=== PATIENT | female | born 1975 | race African-American/Black ===

== ENCOUNTER 2020-05-05 08:00 | Day surgery (SDC) | payer OTHER ==
[~2020-05-05 08:00] MED LIST: Lactated Ringers 1,000 ML IV SCH; Sodium Chloride 0.9% 10 ML SDV IV PRN; Sodium Chloride 0.9% 10 ML Syringe FLUSH PRN; Sodium Chloride 0.9% 2.5 ML Syringe FLUSH PRN
--- NOTE | 2020-05-05 08:46 | PCM.PREANE ---
Preanesthetic Assessment - Anesthesia/Transfusion/Family Hx Anesthesia History: Prior Anesthesia Without Reaction Family History of Anesthesia Reaction: No Transfusion History: No Prior Transfusion(s) Intubation History: Unknown - Review of Systems General: No Symptoms Pulmonary: No Symptoms Cardiovascular: No Symptoms Gastrointestinal: No Symptoms Neurological: No Symptoms Other: Reports: None - Physical Assessment Vital Signs: Last Vital Signs Temp 36.4 C 05/05/20 08:08 Pulse 81 05/05/20 08:08 Resp 16 05/05/20 08:08 BP 180/92 H 05/05/20 08:08 Pulse Ox 98 05/05/20 08:08 Height: 5 ft 3 in Weight: 73.028 kg ASA Class: 2 Mental Status: Alert & Oriented x3 Airway Class: Mallampati = 1 Dentition: Reports: Normal Dentition Thyro-Mental Finger Breadths: 3 Mouth Opening Finger Breadths: 3 ROM/Head Extension: Full Lungs: Clear to Auscultation, Normal Respiratory Effort Cardiovascular: Regular Rate, Regular Rhythm - Lab Values: Laboratory Last Values Urine HCG, Qual NEGATIVE (NEGATIVE) 05/05/20 08:04 - Allergies Allergies/Adverse Reactions: Allergies Allergy/AdvReac Type Severity Reaction Status Date / Time No Known Allergies Allergy Verified 04/29/20 07:50 - Blood Blood Available: No - Anesthesia Plan Pre-Op Medication Ordered: None - Acknowledgements Anesthesia Type Planned: MAC Pt an Appropriate Candidate for the Planned Anesthesia: Yes Alternatives and Risks of Anesthesia Discussed w Pt/Guardian: Yes Pt/Guardian Understands and Agrees with Anesthesia Plan: Yes PreAnesthesia Questionnaire HEENT History: Reports: None Cardiovascular History: Reports: Hypertension Respiratory History: Reports: Asthma Gastrointestinal History: Reports: Chronic Constipation Genitourinary History: Reports: None Musculoskeletal History: Reports: Back Pain, Chronic Neurological History: Reports: None Psychiatric History: Reports: None Endocrine/Metabolic History: Reports: None Hematologic History: Reports: Anemia Immunologic History: Reports: None Oncologic (Cancer) History: Reports: None Dermatologic History: Reports: None - Past Surgical History Head Surgeries/Procedures: Reports: None HEENT Surgical History: Reports: Oral Surgery Cardiovascular Surgical History: Reports: None Respiratory Surgical History: Reports: None GI Surgical History: Reports: None Female Surgical History: Reports: D&C, Other (See Below) Other Female Surgeries/Procedures: exploratory laparoscopy Endocrine Surgical History: Reports: None Neurological Surgical History: Reports: None Musculoskeletal Surgical History: Reports: None Oncologic Surgical History: Reports: None Dermatological Surgical History: Reports: None - SUBSTANCE USE Tobacco Use Status *Q: Current Every Day Tobacco User (to quit 6 cig./day - uses nicotine gum) Tobacco Use Within Last Twelve Months: Cigarettes - HOME MEDS Home Medications: Home Meds Albuterol Sulfate [Albuterol Sulfate Hfa] 1 - 2 puff INH ASDIRECTED PRN 04/29/20 [History] Nicotine Polacrilex [Nicorette] 1 dose CHEW ASDIRECTED PRN 04/29/20 [History] hydroCHLOROthiazide [Hydrochlorothiazide] 25 mg PO DAILY 04/29/20 [History] - CURRENT (IN HOUSE) MEDS Current Meds: Current Medications Lactated Ringer's (Ringers, Lactated) 1,000 mls @ 125 mls/hr IV ASDIRECTED JACKLYN Last Admin: 05/05/20 08:30 Dose: 125 mls/hr Documented by: Sodium Chloride (Saline Flush) 10 ml FLUSH ASDIRECTED PRN PRN Reason: Keep Vein Open Sodium Chloride (Saline Flush) 2.5 ml FLUSH ASDIRECTED PRN PRN Reason: Keep Vein Open Sodium Chloride (Saline Flush) 10 ml FLUSH ASDIRECTED PRN PRN Reason: Keep Vein Open Sodium Chloride (Saline Flush) 2.5 ml FLUSH ASDIRECTED PRN PRN Reason: Keep Vein Open Sodium Chloride (Normal Saline) 10 ml IV ASDIRECTED PRN PRN Reason: IV Use
[2020-05-05] MEDS ORDERED: fentaNYL 100 MCG/2 ML SDV ONE (09:19)
[2020-05-05] MEDS ORDERED: Lidocaine 2% 5 ML SDV ONE (09:19)
[2020-05-05] MEDS ORDERED: Midazolam 1 MG/ML 2 ML SDV ONE (09:19)
[2020-05-05] MEDS ORDERED: Propofol 200 MG/20 ML SDV ONE (09:19)
[2020-05-05] MEDS ORDERED: Glycopyrrolate 0.2 MG/ML SDV ONE (10:15)
--- NOTE | 2020-05-05 10:51 | PCM.OPNOTE ---
- General Post-Op/Procedure Note Date of Surgery/Procedure: 05/05/20 Operative Procedure(s): Diagnostic colonoscopy Findings: sigmoid colon polyps x 3 Pre Op Diagnosis: Change in bowel habits Post-Op Diagnosis: Sigmoid colon polyps Anesthesia Technique: MAC Primary Surgeon: Charmaine Rai Condition: Good
--- NOTE | 2020-05-05 11:23 | PCM.POSTAN ---
POST ANESTHESIA ASSESSMENT - MENTAL STATUS Mental Status: Alert, Oriented - VITAL SIGNS Vital Signs: Last Vital Signs Temp 36.4 C 05/05/20 11:10 Pulse 81 05/05/20 11:10 Resp 14 05/05/20 11:10 BP 177/95 H 05/05/20 11:10 Pulse Ox 96 05/05/20 11:10 - RESPIRATORY Respiratory Status: Respiratory Rate WNL, Airway Patent, O2 Saturation Stable - CARDIOVASCULAR CV Status: Pulse Rate WNL, Blood Pressure Stable - GASTROINTESTINAL GI Status: No Symptoms - PAIN Pain Score: 0 - POST OP HYDRATION Hydration Status: Adequate & Stable - OBSERVATIONS Free Text/Narrative:: No anesthesia problems
--- NOTE | 2020-05-05 11:27 | PCM48HPAN ---
Post Anesthesia Note - EVALUATION WITHIN 48HRS OF ANESTHETIC Vital Signs in Normal Range: Yes Patient Participated in Evaluation: Yes Respiratory Function Stable: Yes Airway Patent: Yes Cardiovascular Function Stable: Yes Hydration Status Stable: Yes Pain Control Satisfactory: Yes Nausea and Vomiting Control Satisfactory: Yes Mental Status Recovered: Yes Vital Signs: Last Vital Signs Temp 36.4 C 05/05/20 11:10 Pulse 81 05/05/20 11:10 Resp 14 05/05/20 11:10 BP 177/95 H 05/05/20 11:10 Pulse Ox 96 05/05/20 11:10 - COMMENTS/OBSERVATIONS Free Text/Narrative:: No anesthesia problems
--- NOTE | 2020-05-05 12:57 | OR ---
SURGEON: CHARMAINE RAI MD DATE OF PROCEDURE: 05/05/2020 PREOPERATIVE DIAGNOSIS: Change in bowel habits. POSTOPERATIVE DIAGNOSIS: Sigmoid colon polyps x3. PROCEDURE PERFORMED: Diagnostic colonoscopy with polypectomy. PRIMARY SURGEON: Charmaine Rai MD ANESTHESIA: MAC. INSTRUMENT USED: Olympus colonoscope. EXTENT OF EXAM: To the cecum. PREPARATION: Good. LIMITATIONS: None. INDICATIONS FOR EXAMINATION: The patient is a 44-year-old female who presents with changes in her bowel habits. I explained the need for diagnostic colonoscopy. The patient and I discussed the procedure, expected perioperative course, and the risks. The patient verbalized understanding and wishes to proceed. PROCEDURE IN DETAIL: The patient was brought to the endoscopy suite and placed in the left lateral decubitus position. A time-out was completed verifying the patient's name, age, date of , allergies, and procedure to be performed. Monitored anesthesia care was induced and continuous oxygen was provided via nasal cannula throughout the procedure. After adequate sedation was achieved, a digital rectal exam was performed. This exam was within normal limits. A well-lubricated colonoscope was inserted in the rectum and advanced under direct visualization to the level of the cecum. The cecum was identified by both visual and anatomic landmarks. A photograph was taken of the cecal cap as well as with the scope retroflexed within the cecum. The scope was then straightened out and fully withdrawn while examining the color, texture, anatomy, and integrity of the mucosa from the cecum to the anal canal. In the sigmoid colon, the patient was noted to have 3 very small sessile polyps. These were removed in piecemeal fashion using cold biopsy forceps. The scope was then brought into the rectum and retroflexed to allow visualization of the anal canal opening. This appeared normal and a photograph was taken. The scope was then straightened out and fully withdrawn. The cecum to anus time was 12 minutes. The patient tolerated the procedure well and was transferred to the PACU in stable condition. ENDOSCOPIC DIAGNOSIS: Sigmoid colon polyps x3. RECOMMENDATIONS: Follow up in clinic in 2 weeks. JARRELL ORTIZ /[id number]
== END 2020-05-05 11:55 | disposition home or self-care (01) ==
LOC: MW.SDS 08:00
PROVIDERS: ATTEND Surgery
DX: K63.5 Polyp of colon (principal); K59.09 Other constipation; I10 Essential (primary) hypertension; Z79.899 Other long term (current) drug therapy; Z98.890 Other specified postprocedural states
CPT/HCPCS: 45380; 81025; 88305; J2001; J2250; J2704; J3010; J3490; J7120

== ENCOUNTER 2021-01-01 10:05 | Emergency (ER) | payer OTHER ==
--- NOTE | 2021-01-01 10:19 | PCM.EKG ---
#1 Interpretation Time: 10:18 EKG Interpretation Comments: 91, normal sinus rhythm, poor R wave progression
[2021-01-01] MEDS ORDERED: Sodium Chloride 0.9% 10 ML Syringe FLUSH PRN (10:21)
[2021-01-01] MEDS ORDERED: Sodium Chloride 0.9% 2.5 ML Syringe FLUSH PRN (10:21)
[2021-01-01] MEDS ORDERED: Aspirin 81 MG Tab.Chew PO ONE (10:21)
[2021-01-01] MEDS: Nitroglycerin 0.4 MG Tab.SL SL PRN ×3 (10:30→10:44)
--- NOTE | 2021-01-01 11:06 | CR ---
Indication: Shortness of breath Comparison: None available. Technique: Single AP view chest Findings: There is hyperinflation and chronic interstitial change. There is no focal consolidation, effusion, or pneumothorax. The cardiomediastinal silhouette is within normal limits. The bony thorax is grossly intact. Impression: No acute cardiopulmonary abnormality. Dictated by Johnnie Ordaz MD @ 01/01/2021 11:05:[address] Johnnie Ordaz @ Jan 01 2021 11:05AM
[2021-01-01 11:09] LABS: BLOOD UREA NITROGEN,BUN 10 mg/dL (7.0-18.0); CARBON DIOXIDE,CO2 26.1 mmol/L (21.0-32.0); CHLORIDE,CL 102 mmol/L (98-107); GLUCOSE RANDOM 93 mg/dL (74-106); LIPASE 156 U/L (73-393); POTASSIUM,K 4.2 mmol/L (3.5-5.1); SODIUM,NA 136 mmol/L (136-145)
[2021-01-01] MEDS ORDERED: Morphine 4 MG/ML Syringe IVPUSH ONE (11:17)
[2021-01-01] MEDS ORDERED: traMADol 50 MG Tab PO ONE (11:23)
--- NOTE | 2021-01-01 11:28 | EDM.PDOC ---
ED HPI GENERAL MEDICAL PROBLEM - General Chief Complaint: Respiratory Problem Stated Complaint: SHORTNESS OF BREATH AND CHEST PAIN Time Seen by Provider: 01/01/21 10:06 Source of Information: Reports: Patient History Limitations: Reports: No Limitations - History of Present Illness INITIAL COMMENTS - FREE TEXT/NARRATIVE: HISTORY AND PHYSICAL: History of present illness: Patient is a 45-year-old female who presents emergency room today with concern of chest pain, shortness of breath, cough, and generalized body aches starting in the middle of the night. Patient also complains of upper back pain and states that this is worse with lying flat and feels as if she is having a "muscle spasm" which she does feel is contributing to her chest pain and shortness of breath. Patient states that her symptoms first started with generalized body aches and cough and states that she was coughing all night long. Patient states when she woke up this morning, she began having chest pain and short of breath so came to the emergency room for further evaluation. Patient states that she does have a history of high blood pressure and states that it is "always super high "and states that her baseline is greater than two hundred systolic over 100s diastolic. Patient states that she has not taken her blood pressure medication today. Patient denies any other health history. States that she was vaccinated for Covid. Patient denies fever, chills. Denies headache, neck stiff ness, change in vision, syncope, or near syncope. Denies nausea, vomiting, abdominal pain, diarrhea, constipation, or dysuria. Has not noted any blood in urine or stool. Patient has been eating and drinking appropriately. Review of systems: As per history of present illness and below otherwise all systems reviewed and negative. Past medical history: As per history of present illness and as reviewed below otherwise noncontributory. Surgical history: As per history of present illness and as reviewed below otherwise noncontributory. Social history: See social history for further information Family history: As per history of present illness and as reviewed below otherwise noncontributory. Physical exam: General: Patient is alert, oriented, and in no acute distress. Patient sitting comfortably on exam table. Hypertensive 230/115 otherwise vitally stable and reviewed by me, HEENT: Atraumatic, normocephalic, pupils equal and reactive bilaterally, negative for conjunctival pallor or scleral icterus, mucous membranes moist, TMs normal bilaterally, throat clear, neck supple, nontender, trachea midline. No drooling or trismus noted. No meningeal signs. No hot potato voice noted. Lungs: Clear to auscultation, breath sounds equal bilaterally, chest nontender. Heart: S1S2, regular rate and rhythm without overt murmur Abdomen: Soft, nondistended, nontender. Negative for masses or hepatosplenomegaly. Negative for costovertebral tenderness. Pelvis: Stable nontender. Genitourinary: Deferred. Rectal: Deferred. Skin: Intact, warm, dry. No lesions or rashes noted. Extremities: No obvious deformity of the complete spine. No step-offs, crepitus, or point tenderness to palpation of the complete spine. Patient does have recreation of her back pain with palpation of the right sided inferior trapezius muscle with improved discomfort with massage on exam. Otherwise, atraumatic, negative for cords or calf pain. Neurovascular unremarkable. Neuro: Awake, alert, oriented. Cranial nerves II through XII unremarkable. Cerebellum unremarkable. Motor and sensory unremarkable throughout. Exam nonfocal. Notes: Patient is a 45-year-old female, with a history of hypertension (who states her baseline BP is typically >200 systolic/100 diastolic), who presents emergency room today with concern of chest pain (starting at 630am this morning), shortness of breath, cough, and generalized body aches/left upper back pain starting in the middle of the night. Upon arrival to the ED, patient is h ypertensive 230/115, otherwise vitally stable and well-appearing on exam. Patient does have some tenderness to palpation of the right sided trapezius muscle and states that this is the back discomfort that she is having. Will obtain cardiac evaluation, provide ASA/Nitro for CP and reassess patient. See Dr. Oakes's dictation for specific EKG interpretation. However, normal sinus rhythm with a rate of 91 bpm without STEMI. CBC does show a mild leukocytosis of 11.35 which nonspecific. Otherwise CBC is unremarkable. D-dimer is within normal limits. CMP is unremarkable. Initial troponin is negative. hCG is negative. Lipase within normal limits. Urinalysis is clear of infection. COVID-19 is negative. Chest x-ray shows no acute cardiopulmonary process. Upon reevaluation of patient, she does not have improvement of her symptoms with Nitro but does have improvement of BP 170s/100s. I did offer morphine due to ACS protocol, however, patient declines morphine requesting tramadol. Will repeat troponin and continue to reassess patient. Repeat troponin is negative. Upon reevaluation of patient, she remains vitally stable and has improvement of her symptoms with tramadol today the emergency room. Given that patient states that her baseline blood pressure is quite elevated, do not feel that patient's blood pressure today is acute and has likely going on for some time. Patient does not have any evidence of end-stage organ dysfunction and no change in her symptoms today with BP lowering with nitro and although elevated BP today, no suggestion for htn emergency given asy mptomatic htn and no end organ dysfunction. Patient does feel as if her back spasm is likely related to her chest pain and shortness of breath making it feel like she cannot take a deep breath in and has improvement of her back spasm with tramadol today in the emergency room which relieved her CP/SOB. HEART score low risk. Patient does have hydrochlorothiazide 25 mg available to her that she typically takes every day but states that she did not take this morning. Patient was provided a dose of her home medications and has improvement of her blood pressure today in the emergency room. However, patient's blood pressure is still markedly high, will start patient on amlodipine 5 mg daily and give patient enough for 1 week until she is able to see her primary care provider for further blood pressure management. Strict return precautions thoroughly discussed with patient. Discussed importance for close follow-up with her primary care provider and the need for further blood pressure management. Voices understanding and is agreeable to plan of care. Denies any further questions or concerns at this time. Diagnostics: EKG, CBC, CMP, UA, serum hcg, Lipase, Trop, Ddimer, COVID Therapeutics: ASA, Nitro, Tramadol (Patient declines morphine requesting tramadol), HCTZ Prescription: Amlodipine Impression: Atypical chest pain, improved Back spasm, improved Hypertension, uncontrolled Plan: 1. You can alternate ibuprofen and Tylenol as directed for pain and discomfort. Take medication as prescribed. 2. Follow-up with your primary care provider closely and for further blood pressure monitoring as discussed. Continue to monitor your blood pressure at home twice daily, once in the morning, and once in the evening and make a journal of this to bring to your primary care provider. 3. Return to the emergency room as needed and as discussed. Definitive disposition and diagnosis as appropriate pending reevaluation and review of above. back/head Pain Score (Numeric/FACES): 8 - Related Data Allergies Allergy/AdvReac Type Severity Reaction Status Date / Time No Known Allergies Allergy Verified 01/01/21 10:20 Home Meds: Home Meds Albuterol Sulfate [Albuterol Sulfate Hfa] 1 - 2 puff INH ASDIRECTED PRN 04/29/20 [History] hydroCHLOROthiazide [Hydrochlorothiazide] 25 mg PO DAILY 04/29/20 [History] amLODIPine [Norvasc] 5 mg PO DAILY 7 Days #7 tab 01/01/21 [Rx] Past Medical History HEENT History: Reports: None Cardiovascular History: Reports: Hypertension Respiratory History: Reports: Asthma, Bronchitis, Recurrent Gastrointestinal History: Reports: Chronic Constipation Genitourinary History: Reports: None [employer] History: Reports: Musculoskeletal History: Reports: Back Pain, Chronic Neurological History: Reports: None Psychiatric History: Reports: None Endocrine/Metabolic History: Reports: None Hematologic History: Reports: Anemia Immunologic History: Reports: None Oncologic (Cancer) History: Reports: None Dermatologic History: Reports: None - Infectious Disease History Infectious Disease History: Reports: Chicken Pox - Past Surgical History Head Surgeries/Procedures: Reports: None HEENT Surgical History: Reports: Oral Surgery Cardiovascular Surgical History: Reports: None Respiratory Surgical History: Reports: None GI Surgical History: Reports: None Female Surgical History: Reports: D&C, Other (See Below) Other Female Surgeries/Procedures: exploratory laparoscopy Endocrine Surgical History: Reports: None Neurological Surgical History: Reports: None Musculoskeletal Surgical History: Reports: None Oncologic Surgical History: Reports: None Dermatological Surgical History: Reports: None Social & Family History - Family History Family Medical History: No Pertinent Family History - Tobacco Use Tobacco Use Status *Q: Current Every Day Tobacco User Years of Tobacco use: 21 Packs/Tins Daily: 0.5 - Caffeine Use Caffeine Use: Reports: Coffee, Tea - Recreational Drug Use Recreational Drug Use: No ED ROS GENERAL - Review of Systems Review Of Systems: Comprehensive ROS is negative, except as noted in HPI. ED EXAM, GENERAL - Physical Exam Exam: See Below (see dictation) Course - Vital Signs Last Recorded V/S: Last Vital Signs Temp 98.6 F 01/01/21 10:40 Pulse 60 01/01/21 14:04 Resp 18 08/20/21 14:04 BP 188/97 H 01/01/21 14:04 Pulse Ox 98 01/01/21 14:04 - Orders/Labs/Meds Orders: Active Orders 24 hr Category Date Time Status Cardiac Monitoring [RC] . DIRECTED Care 01/01/21 10:21 Active Sodium Chloride 0.9% [Saline Flush] Med 01/01/21 10:21 Active 10 ml FLUSH ASDIRECTED PRN Sodium Chloride 0.9% [Saline Flush] Med 01/01/21 10:21 Active 2.5 ml FLUSH ASDIRECTED PRN Saline Lock Insert [OM.PC] Stat Oth 01/01/21 10:21 Ordered Medication Orders Sodium Chloride (Sodium Chloride 0.9% 2.5 Ml Syringe) 2.5 ml FLUSH ASDIRECTED PRN PRN Reason: Keep Vein Open Last Admin: 01/01/21 10:31 Dose: 2.5 ml Documented by: LALI Sodium Chloride (Sodium Chloride 0.9% 10 Ml Syringe) 10 ml FLUSH ASDIRECTED PRN PRN Reason: Keep Vein Open Last Admin: 01/01/21 10:31 Dose: 10 ml Documented by: LALI Labs: Laboratory Tests 01/01/21 01/01/21 01/01/21 Range/Units 10:25 10:25 10:25 WBC 11.35 H (4.0-11.0) K/uL RBC 4.98 (4.30-5.90) M/uL Hgb 15.1 (12.0-16.0) g/dL Hct 43.8 (36.0-46.0) % MCV 88.0 (80.0-98.0) fL MCH 30.3 (27.0-32.0) pg MCHC 34.5 (31.0-37.0) g/dL RDW Std Deviation 46.5 (28.0-62.0) fl RDW Coeff of Kush 15 (11.0-15.0) % Plt Count 272 (150-400) K/uL MPV 12.80 H (7.40-12.00) fL Neut % (Auto) 49.5 (48.0-80.0) % Lymph % (Auto) 40.0 (16.0-40.0) % [place] % (Auto) 9.6 (0.0-15.0) % Eos % (Auto) 0.5 (0.0-7.0) % Baso % (Auto) 0.4 (0.0-1.5) % Neut # (Auto) 5.6 (1.4-5.7) K/uL Lymph # (Auto) 4.5 H (0.6-2.4) K/uL [place] # (Auto) 1.1 H (0.0-0.8) K/uL Eos # (Auto) 0.1 (0.0-0.7) K/uL Baso # (Auto) 0.1 (0.0-0.1) K/uL Nucleated RBC % 0.0 /100WBC Nucleated RBCs # 0 K/uL D-Dimer, Quantitative 0.34 (0.0-0.50) mg/L FEU Sodium 136 (136-145) mmol/L Potassium 4.2 (3.5-5.1) mmol/L Chloride 102 (98-107) mmol/L Carbon Dioxide 26.1 (21.0-32.0) mmol/L BUN 10 (7.0-18.0) mg/dL Creatinine 0.9 (0.6-1.0) mg/dL Est Cr Clr Drug Dosing 64.61 mL/min Estimated GFR (MDRD) > 60.0 ml/min Glucose 93 (74-106) mg/dL Calcium 8.9 (8.5-10.1) mg/dL Total Bilirubin 0.3 (0.2-1.0) mg/dL AST 20 (15-37) IU/L ALT 26 (14-63) IU/L Alkaline Phosphatase 81 (46-116) U/L Troponin I < 0.050 (0.000-0.056) ng/mL Total Protein 7.9 (6.4-8.2) g/dL Albumin 4.0 (3.4-5.0) g/dL Globulin 3.9 (2.6-4.0) g/dL Albumin/Globulin Ratio 1.0 (0.9-1.6) Lipase 156 (73-393) U/L HCG, Qual (NEG) Urine Color Urine Appearance Urine pH (5.0-8.0) Ur Specific Stewart (1.001-1.035) Urine Protein (NEGATIVE) mg/dL Urine Glucose (UA) (NEGATIVE) mg/dL Urine Ketones (NEGATIVE) mg/dL Urine Occult Blood (NEGATIVE) Urine Nitrite (NEGATIVE) Urine Bilirubin (NEGATIVE) Urine Urobilinogen (<2.0) EU/dL Ur Leukocyte Esterase (NEGATIVE) Urine RBC (0-2/HPF) Urine WBC (0-5/HPF) Ur Epithelial Cells (NONE-FEW) Amorphous Sediment (NEGATIVE) Urine Bacteria (NEGATIVE) Urine Mucus (NONE-MOD) SARS-CoV-2 RNA (MARILEE) (NEGATIVE) 01/01/21 01/01/21 01/01/21 Range/Units 10:25 10:42 10:51 WBC (4.0-11.0) K/uL RBC (4.30-5.90) M/uL Hgb (12.0-16.0) g/dL Hct (36.0-46.0) % MCV (80.0-98.0) fL MCH (27.0-32.0) pg MCHC (31.0-37.0) g/dL RDW Std Deviation (28.0-62.0) fl RDW Coeff of Uksh (11.0-15.0) % Plt Count (150-400) K/uL MPV (7.40-12.00) fL Neut % (Auto) (48.0-80.0) % Lymph % (Auto) (16.0-40.0) % [place] % (Auto) (0.0-15.0) % Eos % (Auto) (0.0-7.0) % Baso % (Auto) (0.0-1.5) % Neut # (Auto) (1.4-5.7) K/uL Lymph # (Auto) (0.6-2.4) K/uL [place] # (Auto) (0.0-0.8) K/uL Eos # (Auto) (0.0-0.7) K/uL Baso # (Auto) (0.0-0.1) K/uL Nucleated RBC % /100WBC Nucleated RBCs # K/uL D-Dimer, Quantitative (0.0-0.50) mg/L FEU Sodium (136-145) mmol/L Potassium (3.5-5.1) mmol/L Chloride (98-107) mmol/L Carbon Dioxide (21.0-32.0) mmol/L BUN (7.0-18.0) mg/dL Creatinine (0.6-1.0) mg/dL Est Cr Clr Drug Dosing mL/min Estimated GFR (MDRD) ml/min Glucose (74-106) mg/dL Calcium (8.5-10.1) mg/dL Total Bilirubin (0.2-1.0) mg/dL AST (15-37) IU/L ALT (14-63) IU/L Alkaline Phosphatase (46-116) U/L Troponin I (0.000-0.056) ng/mL Total Protein (6.4-8.2) g/dL Albumin (3.4-5.0) g/dL Globulin (2.6-4.0) g/dL Albumin/Globulin Ratio (0.9-1.6) Lipase (73-393) U/L HCG, Qual NEGATIVE (NEG) Urine Color YELLOW Urine Appearance CLEAR Urine pH 6.0 (5.0-8.0) Ur Specific Stewart 1.015 (1.001-1.035) Urine Protein NEGATIVE (NEGATIVE) mg/dL Urine Glucose (UA) NEGATIVE (NEGATIVE) mg/dL Urine Ketones NEGATIVE (NEGATIVE) mg/dL Urine Occult Blood TRACE-INTACT H (NEGATIVE) Urine Nitrite NEGATIVE (NEGATIVE) Urine Bilirubin NEGATIVE (NEGATIVE) Urine Urobilinogen 0.2 (<2.0) EU/dL Ur Leukocyte Esterase NEGATIVE (NEGATIVE) Urine RBC 0-2 (0-2/HPF) Urine WBC 0-2 (0-5/HPF) Ur Epithelial Cells FEW (NONE-FEW) Amorphous Sediment LIGHT (NEGATIVE) Urine Bacteria FEW (NEGATIVE) Urine Mucus LIGHT (NONE-MOD) SARS-CoV-2 RNA (MARILEE) NEGATIVE (NEGATIVE) 01/01/21 Range/Units 13:44 WBC (4.0-11.0) K/uL RBC (4.30-5.90) M/uL Hgb (12.0-16.0) g/dL Hct (36.0-46.0) % MCV (80.0-98.0) fL MCH (27.0-32.0) pg MCHC (31.0-37.0) g/dL RDW Std Deviation (28.0-62.0) fl RDW Coeff of Kush (11.0-15.0) % Plt Count (150-400) K/uL MPV (7.40-12.00) fL Neut % (Auto) (48.0-80.0) % Lymph % (Auto) (16.0-40.0) % [place] % (Auto) (0.0-15.0) % Eos % (Auto) (0.0-7.0) % Baso % (Auto) (0.0-1.5) % Neut # (Auto) (1.4-5.7) K/uL Lymph # (Auto) (0.6-2.4) K/uL [place] # (Auto) (0.0-0.8) K/uL Eos # (Auto) (0.0-0.7) K/uL Baso # (Auto) (0.0-0.1) K/uL Nucleated RBC % /100WBC Nucleated RBCs # K/uL D-Dimer, Quantitative (0.0-0.50) mg/L FEU Sodium (136-145) mmol/L Potassium (3.5-5.1) mmol/L Chloride (98-107) mmol/L Carbon Dioxide (21.0-32.0) mmol/L BUN (7.0-18.0) mg/dL Creatinine (0.6-1.0) mg/dL Est Cr Clr Drug Dosing mL/min Estimated GFR (MDRD) ml/min Glucose (74-106) mg/dL Calcium (8.5-10.1) mg/dL Total Bilirubin (0.2-1.0) mg/dL AST (15-37) IU/L ALT (14-63) IU/L Alkaline Phosphatase (46-116) U/L Troponin I < 0.050 (0.000-0.056) ng/mL Total Protein (6.4-8.2) g/dL Albumin (3.4-5.0) g/dL Globulin (2.6-4.0) g/dL Albumin/Globulin Ratio (0.9-1.6) Lipase (73-393) U/L HCG, Qual (NEG) Urine Color Urine Appearance Urine pH (5.0-8.0) Ur Specific Stewart (1.001-1.035) Urine Protein (NEGATIVE) mg/dL Urine Glucose (UA) (NEGATIVE) mg/dL Urine Ketones (NEGATIVE) mg/dL Urine Occult Blood (NEGATIVE) Urine Nitrite (NEGATIVE) Urine Bilirubin (NEGATIVE) Urine Urobilinogen (<2.0) EU/dL Ur Leukocyte Esterase (NEGATIVE) Urine RBC (0-2/HPF) Urine WBC (0-5/HPF) Ur Epithelial Cells (NONE-FEW) Amorphous Sediment (NEGATIVE) Urine Bacteria (NEGATIVE) Urine Mucus (NONE-MOD) SARS-CoV-2 RNA (MARILEE) (NEGATIVE) Meds: Medications Generic Name Dose Route Start Last Admin Trade Name Freq PRN Reason Stop Dose Admin Sodium Chloride 2.5 ml 01/01/21 10:21 01/01/21 10:31 Sodium Chloride 0.9% 2.5 Ml Syringe FLUSH 2.5 ml ASDIRECTED PRN Administration Keep Vein Open Sodium Chloride 10 ml 01/01/21 10:21 01/01/21 10:31 Sodium Chloride 0.9% 10 Ml Syringe FLUSH 10 ml ASDIRECTED PRN Administration Keep Vein Open Discontinued Medications Generic Name Dose Route Start Last Admin Trade Name Freq PRN Reason Stop Dose Admin Aspirin 324 mg 01/01/21 10:21 01/01/21 10:29 Aspirin 81 Mg Tab.Chew PO 01/01/21 10:22 324 mg ONETIME ONE Administration Hydrochlorothiazide 25 mg 01/01/21 12:12 01/01/21 12:47 Hydrochlorothiazide 25 Mg Tab PO 01/01/21 12:13 25 mg ONETIME ONE Administration Morphine Sulfate 4 mg 01/01/21 11:17 01/01/21 11:24 Morphine 4 Mg/Ml Syringe IVPUSH 01/01/21 11:18 Not Given ONETIME ONE Nitroglycerin 0.4 mg 01/01/21 10:23 01/01/21 10:44 Nitroglycerin 0.4 Mg Tab.Sl SL 0.4 mg Q5M PRN Administration Chest Pain Tramadol HCl 50 mg 01/01/21 11:23 01/01/21 11:27 Tramadol 50 Mg Tab PO 01/01/21 11:24 50 mg ONETIME ONE Administration Departure - Departure Time of Disposition: 14:42 Disposition: Home, Self-Care 01 Clinical Impression: Atypical chest pain, Uncontrolled hypertension, Back spasm - Discharge Information Prescriptions: amLODIPine [Norvasc] 5 mg PO DAILY 7 Days #7 tab Instructions: How to Take Your Blood Pressure, [id number], Nonspecific Chest Pain, Adult, [id number] Referrals: PCP,None [Primary Care Provider] - Forms: ED Department Discharge Additional Instructions: The following information is given to patients seen in the emergency department who are being discharged to home. This information is to outline your options for follow-up care. We provide all patients seen in our emergency department with a follow-up referral. The need for follow-up, as well as the timing and circumstances, are variable depending upon the specifics of your emergency department visit. If you don't have a primary care physician on staff, we will provide you with a referral. We always advise you to contact your personal physician following an emergency department visit to inform them of the circumstance of the visit and for follow-up with them and/or the need for any referrals to a consulting specialist. The emergency department will also refer you to a specialist when appropriate. This referral assures that you have the opportunity for follow-up care with a specialist. All of these measure are taken in an effort to provide you with optimal care, which includes your follow-up. Under all circumstances we always encourage you to contact your private physician who remains a resource for coordinating your care. When calling for follow-up care, please make the office aware that this follow-up is from your recent emergency room visit. If for any reason you are refused follow-up, please contact the [facility] Emergency Department at and asked to speak to the emergency department charge nurse. [facility] [address] [place] [id number] [address] [address] 1. You can alternate ibuprofen and Tylenol as directed for pain and discomfort. 2. Follow-up with your primary care provider closely and for further blood pressure monitoring as discussed. Continue to monitor your blood pressure at home twice daily, once in the morning, and once in the evening and make a journal of this to bring to your primary care provider. 3. Return to the emergency room as needed and as discussed. Sepsis Event Note (ED) - Evaluation Sepsis Screening Result: No Definite Risk - Focused Exam Vital Signs: Vital Signs Temp Pulse Resp BP BP BP Pulse Ox 01/01/21 14:04 60 18 188/97 H 98 01/01/21 13:17 66 177/89 H 98 01/01/21 12:47 85 18 187/92 H 98 01/01/21 12:23 64 206/94 H 97 01/01/21 11:51 62 18 184/82 H 98 01/01/21 11:15 69 173/89 H 97 01/01/21 10:49 82 18 172/104 H 97 01/01/21 10:44 176/100 H 01/01/21 10:40 98.6 F 83 176/100 H 96 01/01/21 10:37 168/96 H 01/01/21 10:30 238/113 H 01/01/21 10:10 98.6 F 96 20 237/113 H 238/113 H 98 - My Orders Last 24 Hours: My Active Orders 01/01/21 10:21 Cardiac Monitoring [RC] . DIRECTED Sodium Chloride 0.9% [Saline Flush] 10 ml FLUSH ASDIRECTED PRN Sodium Chloride 0.9% [Saline Flush] 2.5 ml FLUSH ASDIRECTED PRN Saline Lock Insert [OM.PC] Stat - Assessment/Plan Last 24 Hours: My Active Orders 01/01/21 10:21 Cardiac Monitoring [RC] . DIRECTED Sodium Chloride 0.9% [Saline Flush] 10 ml FLUSH ASDIRECTED PRN Sodium Chloride 0.9% [Saline Flush] 2.5 ml FLUSH ASDIRECTED PRN Saline Lock Insert [OM.PC] Stat
[2021-01-01] MEDS ORDERED: Hydrochlorothiazide 25 MG Tab PO ONE (12:12)
== END 2021-01-01 15:03 | disposition home or self-care (01) ==
LOC: MW.ED 10:05
DX: R07.89 Other chest pain (principal); I10 Essential (primary) hypertension; M62.830 Muscle spasm of back; J45.909 Unspecified asthma, uncomplicated; D64.9 Anemia, unspecified; Z72.0 Tobacco use; Z79.899 Other long term (current) drug therapy
CPT/HCPCS: 36415; 71045; 80053; 81001; 83690; 84484; 84703; 85025; 85379; 87635; 93005; A9270; 99285-25; U0002

== ENCOUNTER 2022-05-06 12:15 | Emergency (ER) | payer OTHER ==
[2022-05-06] MEDS ORDERED: Cyclobenzaprine 10 MG Tab PO ONE (16:34)
== END 2022-05-06 17:20 | disposition home or self-care (01) ==
LOC: MW.ED 12:15
DX: M79.604 Pain in right leg (principal); I10 Essential (primary) hypertension; F17.210 Nicotine dependence, cigarettes, uncomplicated; Z79.899 Other long term (current) drug therapy
CPT/HCPCS: 93971-26-RT; 93971-RT; 99283

== ENCOUNTER 2022-08-20 09:27 | Emergency (ER) | payer OTHER ==
[2022-08-20] MEDS ORDERED: Sodium Chloride 0.9% 10 ML Syringe FLUSH PRN (10:01)
[2022-08-20] MEDS ORDERED: Sodium Chloride 0.9% 2.5 ML Syringe FLUSH PRN (10:01)
[2022-08-20] MEDS ORDERED: Sodium Chloride 0.9% 1,000 ML IV ONE (10:01)
[2022-08-20] MEDS ORDERED: diphenhydrAMINE 50 MG/ML SDV IVPUSH ONE (10:02)
[2022-08-20] MEDS ORDERED: Prochlorperazine 10 MG/2 ML SDV IVPUSH ONE (10:02)
[2022-08-20 10:25] LABS: CARBON DIOXIDE,CO2 25.4 mmol/L (21.0-32.0); POTASSIUM,K 3.8 mmol/L (3.5-5.1)
[2022-08-20] MEDS ORDERED: Ketorolac 30 MG/ML SDV IVPUSH ONE (10:51)
== END 2022-08-20 11:40 | disposition home or self-care (01) ==
LOC: MW.ED 09:27
DX: R51.9 Headache, unspecified (principal); I10 Essential (primary) hypertension; J45.909 Unspecified asthma, uncomplicated; Z79.899 Other long term (current) drug therapy
CPT/HCPCS: 36415; 70450; 80053; 80305; 85025; 85610; 96361; 96374; 96375; 99284; J0780; J1200; J3490; J7030

== ENCOUNTER 2023-03-08 06:31 | Emergency (ER) | payer OTHER ==
[2023-03-08] MEDS ORDERED: Ketorolac 30 MG/ML SDV IM ONE (07:08)
[2023-03-08] MEDS ORDERED: Diazepam 5 MG Tab PO ONE (08:29)
== END 2023-03-08 08:45 | disposition home or self-care (01) ==
LOC: MW.ED 06:31
DX: M25.551 Pain in right hip (principal); J45.909 Unspecified asthma, uncomplicated; I10 Essential (primary) hypertension; Z79.899 Other long term (current) drug therapy
CPT/HCPCS: 73502; 96372; 99283; A9270; J1885; J3360; 99284

== ENCOUNTER 2023-04-10 09:06 | Emergency (ER) | payer OTHER ==
[2023-04-10] MEDS ORDERED: Albuterol/Ipratropium 3.0-0.5 MG/3 ML Neb Soln NEB ONE (09:18)
[2023-04-10] MEDS ORDERED: predniSONE 20 MG Tab PO STA (09:22)
== END 2023-04-10 10:28 | disposition home or self-care (01) ==
LOC: MW.ED 09:06
DX: J45.901 Unspecified asthma with (acute) exacerbation (principal); Z79.899 Other long term (current) drug therapy
CPT/HCPCS: 71045; 99285; A9270; 93010; 99283; J7620-GY

== ENCOUNTER 2024-06-20 19:02 | Emergency (ER) | payer OTHER ==
[2024-06-20] MEDS: hydrALAZINE 20 MG/ML SDV IVPUSH ONE (19:37)
[2024-06-20 19:51] LABS: PH,VENOUS 7.38 (7.31-7.41)
[2024-06-20 19:52] LABS: BASOPHILS ABSOLUTE AUTO 0.07 K/uL (0.00-0.20); BASOPHILS PERCENT AUTO 0.5 % (0.0-1.0); EOSINOPHILS ABSOLUTE AUTO 0.06 K/uL (0.00-0.45); EOSINOPHILS PERCENT AUTO 0.4 % (0.0-6.0); HEMATOCRIT 43.5 % (37.0-47.0); HEMOGLOBIN 14.9 g/dL (12.0-16.0); IMMATURE GRAN ABSOLUTE AUTO 0.05 K/uL (0.00-0.05); IMMATURE GRAN PERCENT AUTO 0.4 % (0.0-0.4); LYMPHOCYTES ABSOLUTE AUTO 4.77 K/uL (1.00-4.80); MEAN CORPUSCULAR HEMOGLOBIN 29.6 pg (28.0-32.0); MEAN CORPUSCULAR HGB CONC 34.3 g/dL (32.0-36.0); MEAN CORPUSCULAR VOLUME 86.3 fL (83.0-99.0); MEAN PLATELET VOLUME 12.6 fL (9.4-12.3); MONOCYTES ABSOLUTE AUTO 1.18 K/uL (0.00-0.80); MONOCYTES PERCENT AUTO 8.7 % (0.0-8.0); NEUTROPHILS ABSOLUTE AUTO 7.51 K/uL (1.80-7.70); PLATELET COUNT,PLT 292 K/uL (150-400); RED BLOOD CELL COUNT 5.04 M/uL (4.10-5.30); WHITE BLOOD CELL COUNT,WBC 13.64 K/uL (3.9-11.3)
[2024-06-20 20:09] LABS: A/G RATIO 0.9 (0.9-1.6); ALBUMIN 3.7 g/dL (3.4-5.0); BILIRUBIN TOTAL 0.3 mg/dL (0.2-1.0); CALCIUM 8.7 mg/dL (8.5-10.1); CARBON DIOXIDE,CO2 23.9 mmol/L (21.0-32.0); CREATININE 0.9 mg/dL (0.6-1.0); EST CRCL DRUG DOSING (CG) 59.8 mL/min; MAGNESIUM 2.1 mg/dL (1.8-2.4); POTASSIUM,K 3.9 mmol/L (3.5-5.1); PROTEIN TOTAL,TP 7.8 g/dL (6.4-8.2)
[2024-06-20 20:38] LABS: HEMOGLOBIN A1C 5.7 %
== END 2024-06-20 21:32 | disposition left against medical advice (07) ==
LOC: MW.ED 19:02
DX: R20.2 Paresthesia of skin (principal); I16.0 Hypertensive urgency; I10 Essential (primary) hypertension; Z91.148 Patient's other noncompliance with medication regimen for other reason
CPT/HCPCS: 36415; 80053; 80061; 82803; 83036; 83690; 83735; 85025; 93005; 96374; 99284; J0360; 93010; 99285